=== PATIENT | male | born 2000 | race Caucasian/White ===

== ENCOUNTER 2023-12-11 16:17 | Emergency (ER) | payer BC ==
[~2023-12-11] VITALS: Ht 180.3 cm; Wt 91.0 kg
[2023-12-11 16:23] VITALS: O2SAT 98
[2023-12-11 18:57] VITALS: BP 132/89; PULSE 85; RESP 16; TEMP 98.7
== END 2023-12-11 18:57 ==
LOC: ER 16:17
DX: J02.9 Acute pharyngitis, unspecified (principal); R53.83 Other fatigue; B34.9 Viral infection, unspecified; Z20.822 Contact with and (suspected) exposure to COVID-19
CPT/HCPCS: 87070; 87426; 87430; 87804; 99283

== ENCOUNTER 2023-12-19 16:35 | Emergency (ER) | payer BC ==
[~2023-12-19] VITALS: Ht 177.8 cm; Wt 91.0 kg
[2023-12-19 16:49] VITALS: O2SAT 99
[2023-12-19 22:58] VITALS: BP 110/60; PULSE 80; RESP 15; TEMP 98.3
[2023-12-22 04:08] LABS: CHLAMYDIA TRACHOMATIS NAA Negative (Negative); NEISSERIA GONORRHOEAE NAA Negative (Negative)
== END 2023-12-19 23:03 | disposition home or self-care (01) ==
LOC: ER 16:35
DX: J02.9 Acute pharyngitis, unspecified (principal)
CPT/HCPCS: 87070; 87430; 87491; 87591; 99283